=== PATIENT | female | born 1995 ===

== ENCOUNTER 2021-10-28 09:44 | Emergency (ER) | payer OTHER ==
[~2021-10-28] VITALS: Ht 165.1 cm; Wt 59.0 kg
[2021-10-30] MEDS ORDERED: LEVSIN/SL0.125 MG SL (19:13)
[2021-10-30] MEDS ORDERED: PEPCID AC20 MG PO (19:13)
[2021-10-30] MEDS ORDERED: CARAFATE1 GM PO (19:13)
== END 2021-10-28 14:19 | disposition home or self-care (01) ==
LOC: ER 09:44
DX: K80.20 Calculus of gallbladder without cholecystitis without obstruction (principal); R10.11 Right upper quadrant pain; Z88.6 Allergy status to analgesic agent

== ENCOUNTER 2021-11-02 12:12 | Emergency (ER) | payer OTHER ==
[~2021-11-02] VITALS: Ht 165.1 cm; Wt 52.2 kg
[~2021-11-02 12:12] MED LIST: CARAFATE1 GM PO; LEVSIN/SL0.125 MG SL; PEPCID AC20 MG PO
== END 2021-11-02 16:02 | disposition home or self-care (01) ==
LOC: ER 12:12
DX: K83.8 Other specified diseases of biliary tract (principal)